=== PATIENT | female | born 1930 | race Hispanic/Latino ===

== ENCOUNTER 2017-12-16 16:12 | Inpatient (IN) | payer MEDICARE ==
[~2017-12-16] VITALS: Ht 154.9 cm; Wt 38.6 kg
[~2017-12-16 16:12] MED LIST: AMANTADINE100 M1 PO; ATELVIA35 MG PO; BENTYL10 MG PO; DIOVAN HCT 80-1 EACH PO; DULOXETINE PO; IRON PO; PRAMIPEXOLE DIHY1 MG PO; SINEMET 25-1001 EACH PO
--- NOTE | 2017-12-16 16:39 | Consultation ---
DATE OF CONSULTATION: December 16, 2017 REASON FOR CONSULTATION: Medical management. HISTORY OF PRESENT ILLNESS: The patient is a 56-year-old lady, well known to me, who presented with acute abdominal rupture with now sepsis secondary to peritonitis. I was asked to consult for medical management. PAST MEDICAL HISTORY: Significant for chronic back pain, hypertension on pain medication from pain management doctor as well as depression, reflux and hyperlipidemia. MEDICATIONS: See MAR. ALLERGIES: SEE MAR. SOCIAL HISTORY: She is a daily drinker with her . Nonsmoker. FAMILY HISTORY: Hypertension. PHYSICAL EXAMINATION VITAL SIGNS: Temperature 98.6, blood pressure 100/70, pulse 85, sats 98% on ventilator. She is sedated on the ventilator. NECK: Supple. CARDIOVASCULAR: Regular rate and rhythm. LUNGS: Decreased breath sounds bilaterally. ABDOMEN: Distended, but soft with bandage intact. EXTREMITIES: No clubbing or cyanosis. NEUROLOGIC: Sedated. ASSESSMENT AND PLAN 1. Sepsis secondary to peritonitis. Continue postoperative care per infectious disease. 2. Hypertension. Will continue to monitor and use p.r.n. medications. 3. History of anxiety. Will address this once the patient is extubated. Please see hospital chart for full details. Job#: [id number]
[2017-12-16] MEDS ORDERED: AMANTADINE100 MG PO (19:32)
[2017-12-16] MEDS ORDERED: PRAMIPEXOLE DIHY1 MG PO (19:32)
[2017-12-16] MEDS ORDERED: RISPERIDONE0.5 MG PO (19:33)
[2017-12-16] MEDS ORDERED: TRIAMCINOLONE A15 G1 TOP (19:34)
[2017-12-16] MEDS ORDERED: CYMBALTA30 MG PO (19:35)
[2017-12-16] MEDS ORDERED: SINEMET 25-1001 EACH PO (19:36)
[2017-12-16] MEDS ORDERED: VANCOMYCIN 1GM/NS 250 ML 250 ML IV STA (20:39)
[2017-12-16] MEDS ORDERED: PANTOPRAZOLE 40 MG 10ML VIAL IV STA (20:39)
[2017-12-16] MEDS ORDERED: PIPER-TAZ 3.375 GM 50 ML IV STA (20:39)
[2017-12-16] MEDS ORDERED: SODIUM CHLORIDE 0.9% 500ML 500 ML IV ONE (20:45)
[2017-12-16 20:51] LABS: BASOPHILS % 0.2 % (0.0-1.0); EOSINOPHILS % 0.2 % (0.0-6.0); HEMATOCRIT 35.5 % (34.2-44.1); HEMOGLOBIN 11.1 g/dL (12.0-16.0); LYMPHOCYTES # (AUTO) 0.5 (1.0-3.2); LYMPHOCYTES % 8.7 % (18.0-39.1); MEAN CORPUSCULAR HEMOGLOBIN 28.5 pg (28-32); MEAN CORPUSCULAR HGB CONC 31.3 g/dL (31-35); MONOCYTES # (AUTO) 0.4 (0.2-0.8); MONOCYTES % 6.7 % (4.4-11.3); NEUTROPHILS % 83.7 % (38.7-80.0); PLATELET COUNT 416 x10e3/uL (140-360); RED CELL DISTRIBUTION WIDTH 16.2 % (11.7-14.4)
[2017-12-16 20:56] LABS: BILIRUBIN,URINE NEGATIVE (NEGATIVE); CLARITY,URINE CLEAR (CLEAR); COLOR,URINE YELLOW (YELLOW); KETONES,URINE NEGATIVE (NEGATIVE); LEUKOCYTE ESTERASE ,URINE NEGATIVE (NEGATIVE); NITRITE,URINE NEGATIVE (NEGATIVE); PROTEIN,URINE DIPSTICK TRACE (NEGATIVE); URINE UROBILINOGEN 1 mg/dL (0.2 - 1)
[2017-12-16 20:57] LABS: INR 1.22; PROTHROMBIN TIME 14.5 seconds (11.9-14.5)
[2017-12-16 20:58] LABS: PARTIAL THROMBOPLASTIN TIME 37.9 seconds (23.8-35.5)
[2017-12-16 21:06] LABS: POTASSIUM 4.1 mmol/L (3.5-5.1); SODIUM 139 mmol/L (136-145)
[2017-12-16 21:07] LABS: ALANINE AMINOTRANSFERASE 21 IU/L (0-55); ALBUMIN 1.9 g/dL (3.5-5.0); ALBUMIN/GLOBULIN RATIO 0.3 (0.8-2.0); ALKALINE PHOSPHATASE 107 IU/L (40-150); ANION GAP 15.1 mmol/L (8-16); BLOOD UREA NITROGEN 14 mg/dL (7-26); BUN/CREATININE RATIO 19 (6-25); CALCIUM 8.7 mg/dL (8.4-10.2); CARBON DIOXIDE 30 mmol/L (22-29); CHLORIDE 98 mmol/L (98-107); CREATINE KINASE 21 IU/L (29-168); CREATININE, SERUM 0.73 mg/dL (0.57-1.11); EST GLOMERULAR FILTRATION RATE > 60 ML/MIN (60-); GLUCOSE 103 mg/dL (74-118); MAGNESIUM 1.7 MG/DL (1.3-2.1)
[2017-12-16] MEDS ORDERED: HYDRALAZINE HCL 20 MG/ML VIAL IV STA (21:09)
[2017-12-16 21:10] LABS: EPITHELIAL CELLS,URINE FEW /LPF; RBC,URINE 0-5 /HPF (0-5); WBC,URINE (MAN) 0-5 /HPF (0-5)
[2017-12-16 21:26] LABS: THYROID STIMULATING HORMONE 2.417 uIU/mL (0.350-4.940)
--- NOTE | 2017-12-16 21:56 | Diagnostic Imaging Report ---
EXAMINATION: CHEST SINGLE (PORTABLE) INDICATION: Multiple infected ulcers, bedbound COMPARISON: 09/26/2008 FINDINGS: TUBES and LINES: None. LUNGS: Lungs are not well inflated. Interlobular septi thickening present. There is mild prominence of the central pulmonary vasculature, consistent with pulmonary venous congestion. PLEURA: No pleural effusion or pneumothorax. HEART AND MEDIASTINUM: Cardiac size is moderately enlarged. The aorta is ectatic with atherosclerotic calcifications. BONES AND SOFT TISSUES: No acute osseous lesion. Soft tissues are unremarkable. UPPER ABDOMEN: No free air under the diaphragm. IMPRESSION: Findings are compatible with cardiogenic pulmonary edema and central vascular congestion. Signed by: Dr. Neri Madsen M.D. on 12/16/2017 9:52 PM
--- NOTE | 2017-12-16 21:57 | Diagnostic Imaging Report ---
PELVIS AP 1-2 VIEWS HISTORY: Pain COMPARISON: None FINDINGS: Motion artifact and right anterior oblique rotation limits the evaluation. Bones: No displaced fracture. Osseous alignment is within normal limits. Joints: Degenerative changes of the lower lumbar spine. Patient is status post left hip arthroplasty Soft tissues: The soft tissues appear unremarkable. IMPRESSION: No acute radiographic abnormality. Limited exam Signed by: Dr. Neri Madsen M.D. on 12/16/2017 9:53 PM
[2017-12-16] MEDS ORDERED: ONDANSETRON HCL INJ 2 MG/ML VIAL IV PRN (22:00)
--- OUTSIDE RECORDS SUMMARY | 2017-12-16 22:23 | XMS REPORT ---
Author Author [facility] Address Unknown Phone Unavailable Care Team Providers Care Supervisor Front Name Role Phone SUNNY DANGELO Unavailable Unavailable Problems This patient has no known problems. Allergies, Adverse Reactions, Alerts This patient has no known allergies or adverse reactions. Medications This patient has no known medications. Results Test Description Test Time Test Comments Text Results Atomic Results Result Comments PELVIS AP 1-2 VIEWS [place] [address] Patient Name: ASIF BRAXTON MR #: [id number] : 1930 Age/Sex: 87/F Req #: [id number] Adm Physician: Ordered by: DANGELO CORREA MD Report #: [id number] Location: ER Room/Bed: Procedure: [id number] DX/PELVIS AP 1-2 VIEWS Exam Date: 12/16/17 Exam Time: 2129 REPORT STATUS: Signed PELVIS AP 1-2 VIEWS HISTORY: Pain COMPARISON: None FINDINGS: Motion artifact and right anterior oblique rotation limits the evaluation. Bones: No displaced fracture. Osseous alignment is within normal limits. Joints: Degenerative changes of the lower lumbar spine. Patient is status post left hip arthroplasty Soft tissues: The soft tissues appear unremarkable. IMPRESSION: No acute radiographic abnormality. Limited exam Signed by: Dr. Neri Madsen M.D. on 12/16/2017 9:53 PM Dictated By: NERI ANDERSON MD 52 Transcribed By: DREA on 12/16/172152 COPY TO: DANGELO CORREA MD CHEST SINGLE (PORTABLE) [place] [address] Patient Name: ASIF BRAXTON MR #: [id number] : 1930 Age/Sex: 87/F Req #: [id number] Adm Physician: Ordered by: DANGELO CORREA MD Report #: [id number] Location: ER Room/Bed: Procedure: [id number] DX/CHEST SINGLE (PORTABLE) Exam Date: 12/16/17 Exam Time: 2129 REPORT STATUS: Signed EXAMINATION: CHEST SINGLE (PORTABLE) INDICATION: Multiple infected ulcers , bedbound COMPARISON: 09/26/2008 FINDINGS: TUBES and LINES: None. LUNGS: Lungs are not well inflated. Interlobular septi thickening present. There is mild prominence of the central pulmonary vasculature, consistent with pulmonary venous congestion. PLEURA: No pleural effusion or pneumothorax. HEART AND MEDIASTINUM: Cardiac size is moderately enlarged. The aorta is ectatic with atherosclerotic calcifications. BONES AND SOFT TISSUES: No acute osseous lesion. Soft tissues are unremarkable. UPPER ABDOMEN: No free air under the diaphragm. IMPRESSION: Findings are compatible with cardiogenic pulmonary edema and central vascular congestion. Signed by: Dr. Neri Madsen M.D. on 12/16/2017 9:52 PM Dictated By: NERI ANDERSON MD 51 Transcribed By: DREA on 12/16/172151 COPY TO: DANGELO CORREA MD
[2017-12-16] MEDS: DEXTROSE 5%/0.45% SOD CHL 1,000 ML IV SCH (22:52)
[2017-12-16 23:40] VITALS: BP 154/72
[2017-12-17] VITALS (9 sets, daily range): BP systolic 119–149; BP diastolic 62–77
[2017-12-17] MEDS: PIPER-TAZ 3.375 GM 50 ML IV SCH ×4 (02:23→21:21)
[2017-12-17 06:45] LABS: BASOPHILS % 0.2 % (0.0-1.0); EOSINOPHILS % 0.7 % (0.0-6.0); HEMATOCRIT 26.1 % (34.2-44.1); HEMOGLOBIN 8.2 g/dL (12.0-16.0); LYMPHOCYTES # (AUTO) 0.5 (1.0-3.2); LYMPHOCYTES % 8.9 % (18.0-39.1); MEAN CORPUSCULAR HEMOGLOBIN 28.7 pg (28-32); MEAN CORPUSCULAR HGB CONC 31.4 g/dL (31-35); MEAN CORPUSCULAR VOLUME 91.3 fL (81-99); MONOCYTES # (AUTO) 0.5 (0.2-0.8); MONOCYTES % 8.2 % (4.4-11.3); NEUTROPHILS # (AUTO) 4.6 (2.1-6.9); NEUTROPHILS % 81.5 % (38.7-80.0); PLATELET COUNT 332 x10e3/uL (140-360); RED BLOOD COUNT 2.86 x10e6/uL (3.6-5.1); RED CELL DISTRIBUTION WIDTH 16.3 % (11.7-14.4)
[2017-12-17 07:08] LABS: ALANINE AMINOTRANSFERASE 16 IU/L (0-55); ALBUMIN 1.4 g/dL (3.5-5.0); ALBUMIN/GLOBULIN RATIO 0.3 (0.8-2.0); ALKALINE PHOSPHATASE 85 IU/L (40-150); ANION GAP 11.3 mmol/L (8-16); BLOOD UREA NITROGEN 11 mg/dL (7-26); BUN/CREATININE RATIO 17 (6-25); CALCIUM 7.6 mg/dL (8.4-10.2); CARBON DIOXIDE 28 mmol/L (22-29); CHLORIDE 102 mmol/L (98-107); CREATININE, SERUM 0.64 mg/dL (0.57-1.11); EST GLOMERULAR FILTRATION RATE > 60 ML/MIN (60-); GLUCOSE 133 mg/dL (74-118); POTASSIUM 3.3 mmol/L (3.5-5.1); SODIUM 138 mmol/L (136-145)
[2017-12-17] MEDS: VANCOMYCIN 750MG/NS 150ML IVPB 150 ML IV SCH ×2 (10:00→21:21)
[2017-12-17] MEDS: DEXTROSE 5%/0.45% SOD CHL 1,000 ML IV SCH ×2 (10:30→21:21)
[2017-12-18] VITALS (9 sets, daily range): BP systolic 133–194; BP diastolic 59–88
[2017-12-18] MEDS ORDERED: POTASSIUM CHLORIDE 20 MEQ TAB CR PO STA (01:23)
[2017-12-18] MEDS: VANCOMYCIN 750MG/NS 150ML IVPB 150 ML IV SCH ×2 (01:30→13:23)
[2017-12-18] MEDS: PIPER-TAZ 3.375 GM 50 ML IV SCH ×4 (03:24→21:38)
[2017-12-18] MEDS: DEXTROSE 5%/0.45% SOD CHL 1,000 ML IV SCH ×2 (04:00→08:30)
[2017-12-18] MEDS: HYDRALAZINE HCL 20 MG/ML VIAL IV PRN (04:40)
--- NOTE | 2017-12-18 16:08 | Operative Report ---
DATE OF PROCEDURE: December 18, 2017 REFERRING PHYSICIAN: Dr. Alejandro Dugan. PROCEDURE PERFORMED: Esophagogastroduodenoscopy with percutaneous endoscopic gastrotomy tube placement. INDICATIONS FOR PROCEDURE: Dysphagia, failure to thrive. MEDICATION: Patient was done under MAC. Please see anesthesiologist's note. PROCEDURE: With the patient in the supine position, the flexible fiberoptic Olympus gastroscope was introduced into the esophagus under direct visualization without any difficulty. There was some patchy erythema noted in the distal esophagus. The scope was then advanced with ease into the stomach, traversing a moderate-sized hiatal hernia. Mucosa overlying the antrum revealed some patchy intense erythema. Mucosa overlying the body was somewhat atrophic. The pylorus appeared to be of normal contour and shape, was intubated with ease, and the scope was advanced all the way to the 2nd portion of the duodenum. The scope was then withdrawn slowly. Mucosa overlying the proximal 2nd portion and the duodenal bulb appeared to be within normal limits. The scope was then withdrawn back into the stomach and retroflexed, and the mucosa overlying the fundus and the cardia appeared to be within normal limits. The scope was then straightened out, and after delineation of a safe entry point per external digital palpation and transabdominal illumination, PEG tube placement was carried out in the usual fashion. The scope was subsequently withdrawn after documenting a good positioning of the intragastric bumper. Patient tolerated the procedure well. IMPRESSION: 1. Distal esophagitis, mild. 2. Hiatal hernia. 3. Gastritis, atrophic, body. 4. Percutaneous endoscopic gastrotomy tube placement carried out in the usual fashion. PLAN: G-tube to drain to gravity times 24 hours in a [place] bag, then can use. Patient is n.p.o. Job#: [id number] EV cc:ALEJANDRO DUGAN MD
[2017-12-18] MEDS ORDERED: KETAMINE HCL INJ 50 MG/ML 10 ML VIAL ONE (18:05)
[2017-12-19] VITALS (7 sets, daily range): BP systolic 110–175; BP diastolic 57–104
[2017-12-19] MEDS: DEXTROSE 5%/0.45% SOD CHL 1,000 ML IV SCH ×3 (01:36→20:00)
[2017-12-19] MEDS: VANCOMYCIN 750MG/NS 150ML IVPB 150 ML IV SCH ×2 (01:36→13:30)
[2017-12-19] MEDS: PIPER-TAZ 3.375 GM 50 ML IV SCH ×4 (03:08→20:22)
[2017-12-19] MEDS: HYDRALAZINE HCL 20 MG/ML VIAL IV PRN ×2 (09:33→20:23)
[2017-12-19] MEDS ORDERED: TRIAMCINOLONE ACET 0.1% CREAM 15 GM TUBE TOP SCH (16:00)
[2017-12-20] MEDS ORDERED: TRIAMCINOLONE ACET 0.1% CREAM 15 GM TUBE TOP SCH (09:00)
== END 2017-12-19 21:00 | DRG 871 ==
LOC: ER 16:33 → ERHOLD 22:21 → MED/SURG3 22:23
PROC: 0DH68UZ Insertion of Feeding Device into Stomach, Via Natural or Artificial Opening Endoscopic (ICD-10-PCS; principal; 2017-12-18 15:10)
DX: A41.9 Sepsis, unspecified organism (principal); K65.9 Peritonitis, unspecified; L89.154 Pressure ulcer of sacral region, stage 4; L89.514 Pressure ulcer of right ankle, stage 4; L89.150 Pressure ulcer of sacral region, unstageable; R64 Cachexia; G20 Parkinson's disease; I10 Essential (primary) hypertension; B96.89 Other specified bacterial agents as the cause of diseases classified elsewhere; F41.9 Anxiety disorder, unspecified; G89.29 Other chronic pain; F32.9 Major depressive disorder, single episode, unspecified; K20.9 Esophagitis, unspecified; K29.40 Chronic atrophic gastritis without bleeding; K44.9 Diaphragmatic hernia without obstruction or gangrene; R13.10 Dysphagia, unspecified; Z74.01 Bed confinement status
CPT/HCPCS: 36415; 51700; 71045; 72170; 80053; 80202; 81001; 82550; 82553; 83605; 83735; 84443; 84484; 85025; 85610; 85730; 87040; 87071; 87086; 87186; 87205; 93005; 99284; J0360; J2543; J3370; J7040